=== PATIENT | male | born 1935 | race Caucasian/White ===

== ENCOUNTER 2021-04-14 20:07 | Inpatient (IN) | payer MEDICARE ==
[~2021-04-14] VITALS: Ht 165.1 cm; Wt 78.8 kg
[2021-04-14 20:12] VITALS: BP 124/52
[2021-04-14 20:26] LABS: BASO % 0.1 % (0.0-1.0); EOS # 0.1 10*3/uL (0.0-0.4); EOS % 1.6 % (1.0-4.0); HEMATOCRIT 39.5 % (42.0-52.0); LYMPH # 1.6 10*3/uL (1.3-4.4); LYMPH % 20.5 % (27.0-41.0); MEAN CELL VOLUME 90.4 fl (80.0-94.0); MEAN CORPUSCULAR HGB 29.3 pg (27.0-31.0); MEAN CORPUSCULAR HGB CONC 32.4 g/dl (33.0-37.0); MEAN PLATELET VOLUME 9.3 fl (9.6-12.3); MONO # 0.8 10*3/uL (0.1-1.0); MONO % 10.1 % (3.0-9.0); NEUT # 5.1 10*3/uL (2.3-7.9); NEUT % 66.8 % (47.0-73.0); PLATELET COUNT AUTOMATED 278 10*3/uL (130-400); RED BLOOD COUNT 4.37 10*6/uL (4.50-5.90); RED CELL DISTRI WIDTH 12.6 % (0-14.5); WHITE BLOOD COUNT 7.7 10*3/uL (4.8-10.8)
[2021-04-14 20:43] LABS: ALBUMIN 2.9 gm/dl (3.1-4.5); ALKALINE PHOSPHATASE 37 U/L (45-117); BUN 17 mg/dl (7-24); CHLORIDE 108 mmol/L (98-107); CREATININE 0.93 mg/dL (0.70-1.30); POTASSIUM 4.1 mmol/L (3.5-5.1); SGOT/AST 16 IU/L (3-35); SGPT/ALT 19 U/L (12-78); SODIUM 139 mmol/L (136-145); TOTAL PROTEIN 6.7 gm/dL (6.4-8.2)
[2021-04-14 20:44] LABS: ETHYL ALCOHOL < 3.0 mg/dl (<3)
[2021-04-14 22:21] LABS: BILIRUBIN Negative (Negative); BLOOD Negative (Negative); CLARITY Clear (Clear); COLOR Yellow (Yellow); GLUCOSE Negative (Negative); KETONE Trace (Negative); LEUKO ESTERASE Negative (Negative); NITRITE Negative (Negative); PH 5.5 (4.5-8.0); SPECIFIC GRAVITY 1.025 (1.001-1.030)
[2021-04-14 22:30] LABS: URINE AMPHETAMINES < 1000 (1000ng/ml); URINE BARBITURATES < 200 (200ng/ml); URINE BENZODIAZEPINES < 200 (200ng/ml); URINE CANNABINOIDS (THC) < 50 (50ng/ml); URINE COCAINE < 300 (300ng/ml); URINE METHADONE < 300 (300ng/ml); URINE OPIATES < 300 (300ng/ml)
[2021-04-14 23:04] LABS: BACTERIA TRACE; RBC 0-2 rbc/hpf (0-2)
[2021-04-14 23:06] LABS: URINE PHENCYCLIDINE < 25 (25ng/ml)
[2021-04-15] MEDS ORDERED: SYNTHROID,LEVO88 MCG PO (02:35)
[2021-04-15] MEDS ORDERED: ACID REDUCER20 MG PO (02:36)
[2021-04-15] MEDS ORDERED: Depakote250 MG PO (02:39)
[2021-04-15] MEDS ORDERED: DEPAKOTE500 M1 PO (02:40)
[2021-04-15] MEDS ORDERED: DICLOFENAC35 MG PO (02:41)
[2021-04-15] MEDS ORDERED: EXELON1 EAC1 T (02:43)
[2021-04-15] MEDS ORDERED: NAMENDA10 MG PO (02:43)
[2021-04-15] MEDS ORDERED: TRAZODONE150 MG PO (02:44)
[2021-04-15] MEDS ORDERED: RISPERDAL1 M1 PO (02:52)
[2021-04-15] MEDS ORDERED: BISACODYL10 MG R (02:55)
[2021-04-15] MEDS ORDERED: FLEET MINERAL133 ML R (02:58)
[2021-04-15 03:14] VITALS: BP 126/81
[2021-04-15 06:25] LABS: BASO % 0.2 % (0.0-1.0); EOS # 0.1 10*3/uL (0.0-0.4); EOS % 1.4 % (1.0-4.0); HEMATOCRIT 41.1 % (42.0-52.0); LYMPH # 2.1 10*3/uL (1.3-4.4); LYMPH % 22.4 % (27.0-41.0); MEAN CELL VOLUME 90.7 fl (80.0-94.0); MEAN CORPUSCULAR HGB 29.1 pg (27.0-31.0); MEAN CORPUSCULAR HGB CONC 32.1 g/dl (33.0-37.0); MEAN PLATELET VOLUME 9.6 fl (9.6-12.3); MONO # 0.9 10*3/uL (0.1-1.0); MONO % 10.1 % (3.0-9.0); NEUT % 64.5 % (47.0-73.0); PLATELET COUNT AUTOMATED 304 10*3/uL (130-400); RED BLOOD COUNT 4.53 10*6/uL (4.50-5.90); RED CELL DISTRI WIDTH 12.8 % (0-14.5); WHITE BLOOD COUNT 9.3 10*3/uL (4.8-10.8)
[2021-04-15 06:28] LABS: ALBUMIN 3.2 gm/dl (3.1-4.5); BUN 17 mg/dl (7-24); CHLORIDE 105 mmol/L (98-107); CHOLESTEROL 149 mg/dL (<200); CREATININE 0.95 mg/dL (0.70-1.30); POTASSIUM 4.2 mmol/L (3.5-5.1); SGOT/AST 17 IU/L (3-35); SGPT/ALT 20 U/L (12-78); SODIUM 138 mmol/L (136-145); TOTAL PROTEIN 7.1 gm/dL (6.4-8.2); TRIGLYCERIDES 92 mg/dl (<150); VALPROIC ACID (DEPAKENE) 39.9 ug/ml (50-100)
[2021-04-15 06:35] LABS: ALKALINE PHOSPHATASE 39 U/L (45-117); LDL CHOLESTEROL 85 mg/dL (9-159)
[2021-04-15 07:12] VITALS: BP 113/66
[2021-04-15 07:17] LABS: VITAMIN D, 25-HYDROXY 55.9 ng/mL (30-100)
[2021-04-15 08:00] VITALS: BP 113/66
[2021-04-15 20:00] VITALS: BP 124/88
[2021-04-16 07:39] VITALS: BP 127/86
[2021-04-16 20:00] VITALS: BP 118/77
[2021-04-17 07:38] VITALS: BP 133/74
[2021-04-17 20:00] VITALS: BP 127/74
[2021-04-18 07:53] VITALS: BP 135/76
[2021-04-18 20:00] VITALS: BP 122/64
[2021-04-19 07:29] VITALS: BP 122/68
[2021-04-19 20:00] VITALS: BP 135/69
[2021-04-20 07:36] VITALS: BP 104/63
[2021-04-20 20:00] VITALS: BP 110/66
[2021-04-21 07:33] VITALS: BP 112/68
[2021-04-21 20:00] VITALS: BP 123/80
[2021-04-22 07:40] VITALS: BP 144/63
[2021-04-22 20:00] VITALS: BP 110/71
[2021-04-23 07:33] VITALS: BP 113/68
[2021-04-23 20:00] VITALS: BP 140/80
[2021-04-24 07:30] VITALS: BP 118/84
[2021-04-24] MEDS ORDERED: HALDOL5 MG PO (09:31)
[2021-04-24] MEDS ORDERED: MIRTAZAPINE15 M1 PO (09:31)
[2021-04-24] MEDS ORDERED: DIVALPROEX SOD125 M1 PO (09:31)
[2021-04-24] MEDS ORDERED: MEMANTINE HCL10 MG PO (09:31)
[2021-04-24] MEDS ORDERED: BENZTROPINE MESY1 MG PO (09:31)
[2021-04-24] MEDS ORDERED: RIVASTIGMINE1 EAC2 T (09:31)
[2021-04-24] MEDS ORDERED: ROZEREM8 MG PO (09:59)
== END 2021-04-24 13:00 | DRG 883 ==
LOC: ED 20:07 → 3N 23:36
PROVIDERS: Internal Medicine; ADMIT Psychiatry & Neurology Psychiatry; ATTEND Psychiatry & Neurology Psychiatry
DX: F63.81 Intermittent explosive disorder (principal); E44.0 Moderate protein-calorie malnutrition; F33.9 Major depressive disorder, recurrent, unspecified; F02.81 Dementia in other diseases classified elsewhere, unspecified severity, with behavioral disturbance; G30.9 Alzheimer's disease, unspecified; I10 Essential (primary) hypertension; E78.5 Hyperlipidemia, unspecified; E03.9 Hypothyroidism, unspecified; K21.9 Gastro-esophageal reflux disease without esophagitis; D64.9 Anemia, unspecified; R73.9 Hyperglycemia, unspecified; E78.2 Mixed hyperlipidemia; Z68.28 Body mass index [BMI] 28.0-28.9, adult; Z82.0 Family history of epilepsy and other diseases of the nervous system; Z88.1 Allergy status to other antibiotic agents; Z88.8 Allergy status to other drugs, medicaments and biological substances; Z79.899 Other long term (current) drug therapy; Z20.822 Contact with and (suspected) exposure to COVID-19